=== PATIENT | female | born 1985 | race Caucasian/White ===

== ENCOUNTER 2017-08-25 23:33 | Emergency (ER) | payer SELFPAY ==
[~2017-08-25] VITALS: Ht 165.1 cm; Wt 82.9 kg
[2017-08-26 00:34] VITALS: Ht 165.1 cm; Wt 82.9 kg
== END 2017-08-26 00:38 | disposition left against medical advice (07) ==
LOC: E/R 23:33
DX: Z53.21 Procedure and treatment not carried out due to patient leaving prior to being seen by health care provider (principal)